=== PATIENT | male | born 1950 | race Caucasian/White ===

== ENCOUNTER 2022-02-24 07:11 | Inpatient (IN) ==
[2022-02-24 09:08] LABS: Basophils # 0.1 10*3/uL (0.0-0.2); Basophils % 0.8 % (0.0-0.8); Eosinophils # 0.1 10*3/uL (0.0-0.87); Eosinophils % 0.8 % (0.00-10.9); Hematocrit 49.9 VOL% (42.0-52.0); Hemoglobin 16.9 GM/DL (14.0-18.0); Immature Granulocytes % 0.6 %; Immature Granulocytes Absolute 0.08 #; Lymphocytes # 1.6 10*3/uL (1.4-4.0); Lymphocytes % 12.6 % (21.2-54.2); Mean Corpuscular HGB Conc 33.9 GM/DL (32-36); Mean Corpuscular Volume 87.1 FL (87-102); Mean Platelet Volume 11.6 FL (9.6-12.0); Monocytes # 1.1 10*3/uL (0.11-0.8); Monocytes % 8.5 % (1.7-12.7); Neutrophils % 76.7 % (38.7-73.9); Platelet Count 251 T/CUMM (130-400); Red Blood Count 5.73 MC/CUMM (3.8-5.5); Red Cell Distribution Width 14.5 % (9.3-17.3)
[2022-02-24 09:14] LABS: PT Patient Result 11.2 SECS (10.1-12.1)
[2022-02-24 09:25] LABS: Albumin 3.6 G/DL (3.4-5.0); Bilirubin,Total 1.1 MG/DL (0.20-1.00); Calcium 8.8 MG/DL (8.5-10.1); Osmolality,Calculated 283.1 MOS/KG (273-304); Potassium 3.7 MMOL/L (3.5-5.1); Total Protein 7.5 G/DL (6.4-8.2)
[2022-02-24] MEDS ORDERED: ALBUTEROL/IPRATROPIUM 3 ML NEB RESP TX PRN (09:38)
[2022-02-24] MEDS ORDERED: hydrALAZINE 20 MG/1 ML VIAL IV PRN (09:38)
[2022-02-24] MEDS ORDERED: ONDANSETRON 4 MG/2 ML VIAL IV PRN (09:38)
[2022-02-24] MEDS ORDERED: DOCUSATE SODIUM 100 MG CAPSULE PO PRN (09:38)
[2022-02-24] MEDS ORDERED: ACETAMINOPHEN 325 MG TABLET PO PRN (09:38)
[2022-02-24] MEDS ORDERED: FAMOTIDINE 20 MG TABLET PO ONE (11:02)
[2022-02-24] MEDS ORDERED: ALBUTEROL 2.5 MG/3 ML NEB RESP TX ONE (11:02)
[2022-02-24] MEDS: MORPHINE 2 MG/1 ML SYRINGE IV PRN ×2 (11:05→18:05)
[2022-02-24] MEDS ORDERED: SEVOFLURANE 1 UNIT/15 MINUTE INH ONE ×4 (11:21→12:47)
[2022-02-24] MEDS ORDERED: propofoL 200 MG/20 ML VIAL IV ONE (11:21)
[2022-02-24] MEDS ORDERED: LIDOCAINE 2% 5 ML VIAL ONE (11:21)
[2022-02-24] MEDS ORDERED: fentaNYL 100 MCG/2 ML VIAL ONE ×2 (11:22→12:44)
[2022-02-24] MEDS ORDERED: MIDAZOLAM 2 MG/2 ML VIAL ONE (11:22)
[2022-02-24] MEDS ORDERED: MAGNESIUM HYDROXIDE SUSP 30 ML UDCUP PO PRN (12:00)
[2022-02-24] MEDS ORDERED: LACTATED RINGERS 1,000 ML IV SCH (12:00)
[2022-02-24] MEDS ORDERED: CLINDAMYCIN INJ 900 MG/50 ML PREMIX IV ONE (12:00)
[2022-02-24] MEDS ORDERED: diphenhydrAMINE CAP 25 MG CAPSULE PO PRN (12:01)
[2022-02-24] MEDS ORDERED: LACTULOSE 20 GM/30 ML UDCUP PO PRN (12:01)
[2022-02-24] MEDS ORDERED: BISACODYL 10 MG SUPP RECTAL PRN (12:01)
[2022-02-24] MEDS ORDERED: ACETAMINOPHEN INJ 1,000 MG/100 ML VIAL IV ONE (12:44)
[2022-02-24] MEDS ORDERED: ONDANSETRON 4 MG/2 ML VIAL ONE (12:44)
[2022-02-24] MEDS ORDERED: ePHEDrine 50 MG/ML VIAL ONE (12:49)
[2022-02-24] MEDS: LACTATED RINGERS 1,000 ML IV SCH (14:48)
[2022-02-24 17:33] LABS: Hyaline Casts,Urine 1 /LPF (0-3); Mucus,Urine Occasional /LPF (Occasional); RBC,Urine 2 /HPF (0-4)
[2022-02-24 17:34] LABS: Urine Appearance Clear (Clear); Urine Color Yellow (Yellow)
[2022-02-24 17:36] LABS: Bilirubin,Urine Negative (Negative); Blood, Urine Negative (Negative); Glucose,Urine (UA) Negative (Negative); Ketones,Urine Negative (Negative); Nitrite,Urine Negative (Negative); Protein,Urine 30 mg/dL (Negative); Urine Specific Gravity 1.025 (1.001-1.035); Urine Urobilinogen 0.2 eU/dL (<2.0); Urine pH 6.5 (4.5-8.0)
[2022-02-24] MEDS: CLINDAMYCIN INJ 900 MG/50 ML PREMIX IV SCH (18:05)
[2022-02-24] MEDS: NICOTINE 21 MG/24 HR PATCH TRANSDERM SCH (21:26)
[2022-02-24] MEDS: ASCORBIC ACID 500 MG TABLET PO SCH (21:26)
[2022-02-25] MEDS: MORPHINE 2 MG/1 ML SYRINGE IV PRN ×2 (00:25→10:06)
[2022-02-25] MEDS: CLINDAMYCIN INJ 900 MG/50 ML PREMIX IV SCH (01:50)
[2022-02-25] MEDS: LACTATED RINGERS 1,000 ML IV SCH (01:53)
[2022-02-25] MEDS ORDERED: FONDAPARINUX 2.5 MG/0.5 ML SYRINGE SUBCUT SCH ×2 (05:00→06:30)
[2022-02-25 06:16] LABS: Basophils # 0.1 10*3/uL (0.0-0.2); Basophils % 0.8 % (0.0-0.8); Eosinophils # 0.3 10*3/uL (0.0-0.87); Eosinophils % 2.7 % (0.00-10.9); Hematocrit 44.2 VOL% (42.0-52.0); Hemoglobin 14.5 GM/DL (14.0-18.0); Immature Granulocytes % 1.6 %; Immature Granulocytes Absolute 0.18 #; Lymphocytes # 1.3 10*3/uL (1.4-4.0); Mean Corpuscular HGB Conc 32.8 GM/DL (32-36); Mean Corpuscular Volume 88.2 FL (87-102); Mean Platelet Volume 12.4 FL (9.6-12.0); Monocytes # 1.1 10*3/uL (0.11-0.8); Monocytes % 10.4 % (1.7-12.7); Neutrophils % 72.5 % (38.7-73.9); Platelet Count 200 T/CUMM (130-400); Red Blood Count 5.01 MC/CUMM (3.8-5.5); Red Cell Distribution Width 14.6 % (9.3-17.3)
[2022-02-25 06:32] LABS: Calcium 8.2 MG/DL (8.5-10.1); Osmolality,Calculated 275.7 MOS/KG (273-304); Potassium 3.3 MMOL/L (3.5-5.1)
[2022-02-25] MEDS ORDERED: ceFAZolin 1,000 MG VIAL ONE (07:13)
[2022-02-25] MEDS ORDERED: POTASSIUM CHLORIDE 20 MEQ TABLET PO ONE (07:56)
[2022-02-25] MEDS ORDERED: PANTOPRAZOLE 40 MG TABLET PO SCH (09:00)
[2022-02-25] MEDS ORDERED: COENZYME Q10 100 MG CAPSULE PO SCH (09:00)
[2022-02-25] MEDS ORDERED: OMEGA 3 ACID ETHYL ESTERS 1 GM CAPSULE PO SCH (09:00)
[2022-02-25] MEDS ORDERED: ASPIRIN EC 81 MG TABLET PO SCH (09:00)
[2022-02-25] MEDS ORDERED: [UNRECOGNIZED DRUG - OTHER] PO SCH (09:00)
[2022-02-25] MEDS ORDERED: DOCUSATE SODIUM 100 MG CAPSULE PO SCH (09:00)
[2022-02-25] MEDS: ASCORBIC ACID 500 MG TABLET PO SCH (09:31)
[2022-02-25] MEDS: NICOTINE 21 MG/24 HR PATCH TRANSDERM SCH (09:33)
[2022-02-25 15:21] VITALS: BP 129/63
== END 2022-02-25 16:55 | disposition home health service (06) | DRG 482 ==
LOC: N.ED 07:11 → N.EDINP 09:38 → SUATTDRO 09:38 → N.3E 10:07
PROVIDERS: ADMIT Internal Medicine; ATTEND Hospitalist